=== PATIENT | male | born 1990 | race Caucasian/White ===

== ENCOUNTER 2021-02-13 09:25 | Outpatient (CLI) | payer BC | END 2021-02-13 09:26 | disposition home or self-care (01) | LOC: CSHMRI 09:25 | PROVIDERS: ATTEND Family Medicine Sports Medicine | DX: D35.2 Benign neoplasm of pituitary gland (principal); E22.1 Hyperprolactinemia | CPT/HCPCS: 70553 ==

== ENCOUNTER 2022-02-25 14:33 | Outpatient (CLI) | payer BC ==
[~2022-02-25 14:33] MED LIST: Magnevist 469MG/ML 20 ML VIAL ONE
== END 2022-02-25 14:34 | disposition home or self-care (01) ==
LOC: CSHMRI 14:33
PROVIDERS: ATTEND Family Medicine Sports Medicine
DX: D35.2 Benign neoplasm of pituitary gland (principal)
CPT/HCPCS: 70553